=== PATIENT | male | born 1945 | race Caucasian/White ===

== ENCOUNTER 2016-09-29 05:57 | Inpatient (IN) | payer MEDICARE, OTHER ==
[2016-09-26 15:55] LABS: HEMATOCRIT 43.3 % (40.0-51.0)
[2016-09-26 16:26] LABS: BUN (BLOOD UREA NITROGEN) 14 MG/DL (6-23); CALCIUM, SERUM 9.1 MG/DL (8.5-10.4); CHLORIDE, SERUM 105 MMOL/L (96-112); CO2 (CARBON DIOXIDE) 28 MMOL/L (24-34); CREATININE 1.06 MG/DL (0.70-1.30); GFR AFRICAN AMERICAN 81 ML/MIN (>=60); GFR NON AFRICAN AMERICAN 70 ML/MIN (>=60); GLUCOSE, SERUM 94 MG/DL (60-99); POTASSIUM, SERUM 4.1 MMOL/L (3.5-5.3); SODIUM, SERUM 141 MMOL/L (135-148)
--- NOTE | ~2016-09-29 | OP ---
Record Of Operation [facility] [address] [place]. [address] NAME: PHIL RIVAS : 45 STATUS : DIS IN PAT#: [id number] AGE: 71 ADM/REG DATE : 09/29/16 MR#: [id number] REPORT SERV DATE: 10/03/16 DICTATED BY: ALTON YANCEY DATE: 10/03/16 REPORT STATUS : Draft TRANSCRIBED BY: MODAlicja DATE: 10/03/16 DATE OF PROCEDURE: 09/29/2016 PREOPERATIVE DIAGNOSIS: Asymptomatic right internal carotid artery stenosis. POSTOPERATIVE DIAGNOSIS: Asymptomatic right internal carotid artery stenosis. PROCEDURE: Right internal carotid artery stent. SURGEON: Alton Yancey M.D. BENCH MOLDER APPRENTICE: None. ANESTHESIA: MAC plus local. INDICATIONS: The patient is a 71-year-old gentleman who has asymptomatic right internal carotid artery stenosis. 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 I talked to him about the risks, benefits, and alternatives of carotid interventions including carotid endarterectomy and stent. With this in mind, he agreed to proceed with carotid stenting. DESCRIPTION OF PROCEDURE: After informed consent was obtained, the patient was taken to the operating room and placed in the supine position on the operating table. Monitored anesthesia was administered. His groins were prepped and draped in usual sterile fashion. Ultrasound-guided access was obtained of the right common femoral artery using a micropuncture technique. I placed a 5-Surinamese sheath after obtaining oblique angiogram confirming the puncture within the anterior common femoral artery. I placed a UF catheter into the ascending aorta. An arch aortogram was obtained. There was no hemodynamically significant aortic arch disease. 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 The innominate artery as well as the proximal right subclavian and common carotid arteries were patent and free of significant stenosis. It looked like the left common carotid artery had mild stenosis near the origin. The left subclavian artery was patent. I used a H1 catheter to select out the innominate artery. I tried to get a catheter into the common carotid artery but was unsuccessful. I ended up getting a wire up into the common carotid artery and tried to get a TrailBlazer catheter up there. I was unsuccessful. Had been systemically heparinized for this portion of the procedure. I placed a wire out into the right brachial artery. I was able to get a catheter out into the right brachial artery. I subsequently exchanged my sheath for a 6-Surinamese 90-cm sheath that I placed such that the tip was in the right subclavian artery. I exchanged out my wire for a V18 wire and used it as a annabella wire as I pulled my sheath back and attempted to select out the common carotid artery. I was able to get a wire up into what I thought was the right common carotid artery. I pulled out my V18 wire and advanced my sheath into what I thought was the common carotid artery. I obtained an angiogram that demonstrated that the sheath was in fact in the right vertebral artery. It was patent. With some effort, I was finally able to get my sheath back into the innominate artery with the annabella wire in the right brachial artery. I was able to select Record Of Operation [facility] [id number] [facility] [place]. [address] NAME: PHIL RIVAS : 45 STATUS : DIS IN PAT#: [id number] AGE: 71 ADM/REG DATE : 09/29/16 MR#: [id number] REPORT SERV DATE: 10/03/16 DICTATED BY: ALTON YANCEY DATE: 10/03/16 REPORT STATUS : Draft TRANSCRIBED BY: CARLOS DATE: 10/03/16 out the common carotid artery. I advanced my sheath into the common carotid artery. I obtained an angiogram that demonstrated that the common carotid artery had about 75% stenosis. In other views, it looked like the stenosis was more significant. I crossed the common carotid artery stenosis and deployed a 7 mm AngioGuard embolic protection device. I then crossed the area of stenosis with a 9 x 30 mm precise stent. I deployed it within the internal carotid artery. Imaging obtained afterwards showed a really good result with minimal residual stenosis. I then retrieved my embolic protection device and examined it on the back table. There were no embolic debris located within the embolic protection device. I then obtained additional imaging that demonstrated no spasm or significant residual stenosis. I withdrew my wire, catheter, and sheath and used a ProGlide device to close the arteriotomy. Of note, I did make sure that the right vertebral artery was still patent without significant injury before pulling out my sheath. The patient tolerated the procedure well without any intraprocedural complications noted. CRIMINAL ATTORNEY/MODL Alton Yancey M.D. / [id number] CC: Kenney Taveras MD
[~2016-09-29 05:57] MED LIST: ASAB PO; LIPITOR20 PO; NORV10 PO
[2016-09-30 03:43] LABS: BUN (BLOOD UREA NITROGEN) 14 MG/DL (6-23); CALCIUM, SERUM 8.4 MG/DL (8.5-10.4); CHLORIDE, SERUM 105 MMOL/L (96-112); CO2 (CARBON DIOXIDE) 27 MMOL/L (24-34); CREATININE 0.95 MG/DL (0.70-1.30); GFR AFRICAN AMERICAN 93 ML/MIN (>=60); GFR NON AFRICAN AMERICAN 80 ML/MIN (>=60); GLUCOSE, SERUM 95 MG/DL (60-99); POTASSIUM, SERUM 3.8 MMOL/L (3.5-5.3); SODIUM, SERUM 140 MMOL/L (135-148)
[2016-09-30] MEDS ORDERED: PLAVIX PO (10:54)
== END 2016-09-30 11:20 | disposition home or self-care (01) | DRG 39 ==
LOC: SDC 05:57 → SDC/OF 11:34 → CVICU 11:59
PROVIDERS: Surgery
PROC: 037K0DZ Dilation of Right Internal Carotid Artery with Intraluminal Device, Open Approach (ICD-10-PCS; principal; 2016-09-29 07:45)
DX: I65.23 Occlusion and stenosis of bilateral carotid arteries (principal); I10 Essential (primary) hypertension; F17.210 Nicotine dependence, cigarettes, uncomplicated; I70.213 Atherosclerosis of native arteries of extremities with intermittent claudication, bilateral legs; Z82.49 Family history of ischemic heart disease and other diseases of the circulatory system; Z83.3 Family history of diabetes mellitus; Z80.42 Family history of malignant neoplasm of prostate; Z79.82 Long term (current) use of aspirin; Z71.6 Tobacco abuse counseling; Z28.21 Immunization not carried out because of patient refusal
CPT/HCPCS: 36221; 37215; 80048; 83735; 85014; 85018; 93005; A9270-GY; C1760; C1769; C1876; C1884; C1894; J0690; J2250; J2405; J3010; Q9966